=== PATIENT | male | born 1995 | race Hispanic/Latino ===

== ENCOUNTER 2021-10-09 16:44 | Emergency (ER) | payer SELFPAY ==
[~2021-10-09] VITALS: Ht 170.2 cm; Wt 81.6 kg
[2021-10-09] MEDS ORDERED: KETOROLAC TROMETHAMINE 30 MG/ML VIAL IV STA (16:58)
[2021-10-09 17:09] LABS: BASOPHILS # (AUTO) 0.1 (0.0-0.1); BASOPHILS % 0.5 % (0.0-1.0); EOSINOPHILS % 0.2 % (0.0-6.0); HEMATOCRIT 51.7 % (38.2-49.6); HEMOGLOBIN 17.4 g/dL (14.0-18.0); LYMPHOCYTES % 8.4 % (18.0-39.1); MEAN CORPUSCULAR HGB CONC 33.7 g/dL (31-35); MEAN CORPUSCULAR VOLUME 92.2 fL (81-99); MONOCYTES # (AUTO) 0.6 (0.2-0.8); MONOCYTES % 5.1 % (4.4-11.3); NEUTROPHILS # (AUTO) 10.1 (2.1-6.9); NEUTROPHILS % 84.7 % (38.7-80.0); PLATELET COUNT 231 x10e3/uL (140-360); RED BLOOD COUNT 5.61 x10e6/uL (4.3-5.7); RED CELL DISTRIBUTION WIDTH 12.2 % (11.7-14.4)
[2021-10-09] MEDS ORDERED: Morphine 4mg Syringe 4 MG/ML INJ IV PRN (17:15)
[2021-10-09] MEDS ORDERED: MAALOX/LIDOCAINE/BENADRYL/NYST 30 ML BTL PO ONE (17:15)
[2021-10-09 17:27] LABS: ALBUMIN 4.3 g/dL (3.5-5.0); ALBUMIN/GLOBULIN RATIO 1.3 (0.8-2.0); ANION GAP 15.9 mmol/L (8-16); CALCIUM 8.9 mg/dL (8.4-10.2); CREATININE, SERUM 0.83 mg/dL (0.72-1.25); LIPASE 10 U/L (8-78); POTASSIUM 3.9 mmol/L (3.5-5.1)
[2021-10-09] MEDS ORDERED: ONDANSETRON ODT4 MG PO (18:23)
[2021-10-09] MEDS ORDERED: DICYCLOMINE HCL20 MG PO (18:23)
[2021-10-09] MEDS ORDERED: NEXIUM20 MG PO (18:23)
== END 2021-10-09 18:40 | disposition home or self-care (01) ==
LOC: ER 17:04
DX: R10.13 Epigastric pain (principal); K29.70 Gastritis, unspecified, without bleeding; R11.2 Nausea with vomiting, unspecified; R94.31 Abnormal electrocardiogram [ECG] [EKG]
CPT/HCPCS: 36415; 74018; 80053; 83690; 84484; 85025; 93005; 99284; J2270